=== PATIENT | female | born 1990 | race Caucasian/White ===

== ENCOUNTER 2018-08-23 14:52 | Inpatient (IN) | payer MEDICAID ==
--- NOTE | 2018-08-23 18:24 | ED PDOC ---
HPI: Psych/Substance Abuse Time Seen by Provider: 08/23/18 16:49 Chief Complaint (Nursing): Psychiatric Evaluation Chief Complaint (Provider): Psychiatric Evaluation History Per: Patient History/Exam Limitations: no limitations Current Symptoms Are (Timing): Still Present Suicide/Self Injury Attempted (Context): None Modifying Factor(s): None Associated Symptoms: Anxiety Additional Complaint(s): 28 year old female with a history ADHD, anxiety and depression presents to the ED for psychiatric evaluation. Patient reports her ADHD was originally treated with Ritalin without improvement. Following that, she was prescribed Adderrall, which improved symptoms, but was only able to take it for a month before she lost her insurance. Patient states that she was smoking weed in place of Adderall but has not done so in 3-4 weeks. Patient states she is feeling more anxious and irritable lately with decreased ability to concentrate. As per patient, she attempted to get an appointment through [facility] but was unable to obtain an appointment until late September so she was referred to the ED. Denies homicidal or suicidal ideation and both visual and auditory hallucinations. PMD: Dr. Fred Alan Past Medical History Reviewed: Historical Data, Nursing Documentation, Vital Signs Vital Signs: Last Vital Signs Temp 98 F 08/23/18 15:13 Pulse 109 H 08/23/18 15:13 Resp 16 08/23/18 15:13 BP 152/87 H 08/23/18 15:13 Pulse Ox 99 08/23/18 15:13 Primary Care Provider: Fred Alan - Medical History PMH: Anxiety, Depression Other PMH: ADHD - Surgical History Surgical History: No Surg Hx - Family History Family History: States: Unknown Family Hx - Social History Drugs: Denies - Allergies Allergies/Adverse Reactions: Allergies Allergy/AdvReac Type Severity Reaction Status Date / Time apple Allergy ITCHING Verified 08/23/18 22:27 cat dander Allergy ITCHING Verified 08/23/18 22:27 pollen extracts Allergy ITCHING Verified 08/23/18 22:27 Review of Systems ROS Statement: Except As Marked, All Systems Reviewed And Found Negative Psych: Positive for: Anxiety, Other (irritability and decreased concentration ). Negative for: Suicidal ideation (and HI) Physical Exam - Reviewed Nursing Documentation Reviewed: Yes Vital Signs Reviewed: Yes - Physical Exam Appears: Positive for: No Acute Distress Head Exam: Positive for: ATRAUMATIC, NORMAL INSPECTION, NORMOCEPHALIC Skin: Positive for: Normal Color, Warm, Dry Eye Exam: Positive for: EOMI, Normal appearance, PERRL ENT: Positive for: Normal ENT Inspection. Negative for: Other (tongue deviation) Cardiovascular/Chest: Positive for: Regular Rate, Rhythm. Negative for: Murmur Respiratory: Positive for: Normal Breath Sounds. Negative for: Respiratory Distress Neurological/Psych: Positive for: Awake, Alert, Normal Tone, Oriented (x 3), collar runner II-XII (intact), Other (Able to puff cheeks bilaterally; symmetrical eyebrow raise). Negative for: Facial Droop - Laboratory Results Result Diagrams: 08/23/18 19:30 08/23/18 19:30 - ECG ECG: Positive for: Interpreted By Me, Viewed By Me ECG Rhythm: Positive for: Sinus Rhythm (normal) Rate: 100 O2 Sat by Pulse Oximetry: 99 (RA) Pulse Ox Interpretation: Normal Medical Decision Making Medical Decision Makin:44 MDM: Crisis evaluation 19:10 Seen and evaluated by drapery worker. Patient will be admitted to Dr. Goode with the diagnosis of depression. Chest x-ray read by me and shows no acute pathology. UDS positive for benzos and cannabinoid, UA negative for nitrate and LE. Trace blood. WBCs within normal limits. Patient medically stable for psychiatric admission. Scribe Attestation: Documented by Kiley Dash, acting as a scribe Rachelle Villarreal Provider Scribe Attestation: All medical record entries made by the Scribe were at my direction and personally dictated by me. I have reviewed the chart and agree that the record accurately reflects my personal performance of the history, physical exam, medical decision making, and the department course for this patient. I have also personally directed, reviewed, and agree with the discharge instructions and disposition. Disposition - Clinical Impression Clinical Impression: Depression - Patient ED Disposition Is Patient to be Admitted: Yes Discussed With DrJustina: Arabella Goode Doctor Will See Patient In The: Hospital - Disposition Disposition: Transfer of Care Disposition Time: 19:10 Condition: FAIR - Pt Status Changed To: Hospital Disposition Of: Inpatient - Admit Certification Admit to Inpatient:: After my assessment, the patient will require hospitalization for at least two midnights. This is because of the severity of symptoms shown, intensity of services needed, and/or the medical risk in this patient being treated as an outpatient.
[2018-08-23 19:02] LABS: BARBITURATES, UR NEGATIVE (NEGATIVE); BENZODIAZEPINES, UR POSITIVE (NEGATIVE); OPIATES, UR NEGATIVE (NEGATIVE); PHENCYCLIDINE, UR NEGATIVE (NEGATIVE)
[2018-08-23 19:19] LABS: SQUAMOUS EPITHIAL 4 /hpf (0-5); URINE BACTERIA RARE (<OCC); URINE BILIRUBIN NEGATIVE (NEGATIVE); URINE CLARITY SLIGHTY-CLOUDY (Clear); URINE COLOR YELLOW (YELLOW); URINE GLUCOSE (UA) NEG (NEGATIVE); URINE LEUKOCYTE ESTERASE NEG Leu/uL (Negative); URINE PROTEIN NEGATIVE (NEGATIVE); URINE UROBILINOGEN 0.2-1.0 mg/dL (0.2-1.0)
[2018-08-23 19:20] LABS: URINE BLOOD TRACE (NEGATIVE)
[2018-08-23 19:49] LABS: BASO % 0.4 % (0.0-2.0); EOS # 0.1 K/uL (0.0-0.7); EOS % 1.2 % (0.0-4.0); HEMOGLOBIN 14.7 g/dL (12.0-16.0); LYMPH # 2.6 K/uL (1.0-4.3); LYMPH % 27.7 % (20.0-40.0); MEAN CELL VOLUME 94.3 fl (81.0-99.0); MEAN CORPUSCULAR HEMOGLOBIN 32.2 pg (27.0-31.0); MEAN CORPUSCULAR HGB CONC 34.2 g/dL (33.0-37.0); MEAN PLATELET VOLUME 7.4 fl (7.2-11.7); MONO # 0.5 K/uL (0.0-0.8); NEUT # 6.2 K/uL (1.8-7.0); NEUT % 65.7 % (50.0-75.0); NRBC % 0.1 % (0.0-0.0); RBC 4.55 Mil/uL (3.80-5.20); RED CELL DISTRIBUTION WIDTH 13.2 % (11.5-14.5); WHITE BLOOD COUNT 9.5 K/uL (4.8-10.8)
[2018-08-23 19:54] LABS: ALB/GLOB RATIO 1.5 (1.0-2.1); ALBUMIN 4.9 g/dL (3.5-5.0); ALT/SGPT 24 U/L (9-52); AST/SGOT 31 U/L (14-36); BLOOD UREA NITROGEN 6 mg/dl (7-17); CALCIUM 9.7 mg/dL (8.4-10.2); GFR NON-AFRICAN AMERICAN > 60
[2018-08-23] MEDS ORDERED: Magnesium Hydroxide Susp 30 ml UD PO PRN (23:01)
[2018-08-23] MEDS ORDERED: Alum-Mag Hydrox-Simethicone Susp (30 mL) PO PRN (23:01)
[2018-08-23] MEDS ORDERED: DiphenhydrAMINE 50 mg/ml Inj IM PRN (23:01)
--- NOTE | 2018-08-23 23:15 | PCM.BM ---
<Otf Beckett - Last Filed: 08/23/18 23:13> Treatment Plan Problems - Problems identified on initial assessmt Anxiety Date Initiated: 08/23/18 Time Initiated: 23:13 Assessment reference: NA Status: Active Priority: 1 Hopelessness/Helplessness Date Initiated: 08/23/18 Time Initiated: 23:13 Assessment reference: NA Status: Active Priority: 2 Altered Sleep Patterns Date Initiated: 08/23/18 Time Initiated: 23:14 Assessment reference: NA Status: Active Priority: 3 Medication nonadherence Date Initiated: 08/23/18 Time Initiated: 23:14 Assessment reference: NA Status: Active Priority: 4 Treatment assets and liabiliti Patient Assests: cooperative, educated, self-reliant, ADL independent, physically healthy, good support system, negotiates basic needs, cognitively intact, good interpersonal skills Patient Liabilities: substance abuse, other (Medication noncompliance) - Milieu Protocol Maintain good personal hygiene: daily Encourage regular showers, daily Remind patient to perform daily oral care, daily Assist patient to perform ADL's Conduct patient checks and document Observation sheet: Q15 minutes Maintain personal safety: every shift Educate patient to report safety concerns to staff, every shift Monitor environment for contraband/sharps Medication safety: Monitor for expected outcome, potential side effects: every shift, Assess barriers to learning: every shift, Assess readiness for medication education: every shift <Arabella Goode - Last Filed: 08/24/18 09:39> - Diagnosis (1) Major depressive disorder Status: Acute Interventions: Medication management, Individual and group therapy, Psychoeducation 08/24/18 09:39 (2) Generalized anxiety disorder Status: Acute Interventions: Medication management, Individual and group therapy, Psychoeducation 08/24/18 09:39 (3) ADHD Status: Acute Interventions: Medication management, Individual and group therapy, Psychoeducation 08/24/18 09:39 <Carole Muñoz - Last Filed: 08/24/18 14:07> Family Contact Family involvement: Patient does not wish Family/SO involvement Family contact: Patient declines to allow family contact at present - Outside Agency [facility] Care involvment: Information-sharing Agency contact number: - Goals for Treatment Patient goals for treatment: Pt will improve overall mood. Pt will comply with treatment plan and prescribed medications. Pt will attend activity and group therapy. Pt will develop coping skills to cope with her anxiety and depression. Pt will develop strategies for thought distraction when ruminating on the past. Discharge/Continuing Care - Education Needs Education Needs: Patient Medication, Patient Diagnosis/Disease Process, Patient Coping Skills, Patient Community resources, Patient Activities of Daily Living, Patient Aftercare Safety Plan - Discharge Discharge Criteria: Tolerates medication w/o severe side effects, Normal sleep pattern, Ability to care for self, Reduction of target symptoms, Other Discharge to:: Home, With Family - Additional Comments 08/24/18 13:56 Pt seen and discussed in team meeting. Reason for hospitalization reviewed and discussed. Pt reported that she was referred to the ED by Dr. Dayanna MD. Pt reported it was her first time seeing Dr. Alan and she explained to him that she has a hx of depression, anxiety and ADHD. Pt reported that she was under the care and tx of a psychiatrist during her childhood, but not recently. Pt reported that she did seek treatment with [facility] and also has an appointment scheduled for [facility] on 09/23/2018. Pt reported that [facility] provided her with RX for depression and anxiety for 15 days. Pt reported issues with her ADHD medication due to health insurance issues. Pt reported depressed mood, increased anxiety and mood swings prior to hospitalization. Pt reported feeling stable presently. Pt's medications reviewed by attending psychiatrist. Pt reported having no concerns of side affects. Pt's social and medical issues reviewed. Pt reported that her 2 y.o. daughter is presently under the care of her father, Alfred and her godmother and her brother. Pt denied SI and HI. Pt denied AVH. Pt denied any paranoia. Pt denied hx of prior suicide attempts. Pt denied thoughts to hurt herself or others. Pt denied hx of DCP&P. Pt signed a 48 hour notice of intent to leave and per attending psychiatrist pt will be discharged tomorrow, August 25. Pt verbalized agreement. Nursing Home Admissions Director offered pt to be linked to [facility] due to proximally and pt agreeable. Pt signed consent for for [facility] and requested that feature writer cancel her appointment with [facility]. Nursing Home Admissions Director inquired about family contact for collateral information. Pt declined stating that she already spoke to her family and they are aware of her hospitalization. Pt stated "the are [place] and make a small problem into a big problem." SW will continue to follow case. - Treatment Team Participation Discussed with Family/SO: No (Pt refused) Was Patient/Family/SO present at Treatment Team Meeting: Yes
[2018-08-23 23:43] VITALS: O2SAT 99
--- NOTE | 2018-08-24 06:37 | CP.PCM.CON ---
History of Present Illness - History of Present Illness History of Present Illness: Medicine consult note for Dr. Alan, This is 28 y/o F with PMH of ADHD, depression and anxiety admitted to [facility]/Psych for evaluation and treatment of Anxiety. Patient reports she is not on her adderall for ADHD for insurance issues and that is making her anxious. Denies any current SI/HI. Denies any health issue, dizziness, hallucination, palpitations, chest pain, SOB, abdominal pain or dysuria. PMD: Dr. Alan PMH: ADHD, depression and anxiety PSh; Allg: NKDA SH: + marijuana, + 3-5 cig/day and denies any alcohol use FH: + Heart disease and depression ROS: As per HPI Review of Systems - Constitutional Constitutional: absent: Excessive Sweating, Lethargy, Weight Loss, Weakness - EENT Eyes: absent: Blurred Vision Ears: absent: Ear Discharge, Dizziness Nose/Mouth/Throat: absent: Nasal Congestion - Breasts Breasts: absent: Skin Changes - Cardiovascular Cardiovascular: absent: Chest Pain - Respiratory Respiratory: absent: Cough, Dyspnea, Hemoptysis, Dyspnea on Exertion - Gastrointestinal Gastrointestinal: absent: Abdominal Pain, Diarrhea, Vomiting - Genitourinary Genitourinary: absent: Change in Urinary Stream, Dysuria - Musculoskeletal Musculoskeletal: absent: Back Pain - Integumentary Integumentary: absent: Skin Ulcer - Neurological Neurological: absent: Abnormal Hearing, Dizziness, Sensory Deficit, Syncope, Tingling, Tremor, Vertigo, Weakness, Other Visual Disturbances - Psychiatric Psychiatric: Anxiety, Depression. absent: Suicidal Ideation, Visual Hallucinations, Tactile Hallucinations - Endocrine Endocrine: absent: Polyuria - Hematologic/Lymphatic Hematologic: absent: Easy Bleeding Past Patient History - Past Social History Drugs: Denies - CARDIAC Hx Cardiac Disorders: No Hx Hypertension: No - PULMONARY Hx Tuberculosis: No - NEUROLOGICAL HX Cerebrovascular Accident: No Hx Seizures: No - HEMATOLOGICAL/ONCOLOGICAL Hx Cancer: No Hx Human Immunodeficiency Virus (HIV): No - GENITOURINARY/GYNECOLOGICAL Hx Sexually Transmitted Disorders: No - PSYCHIATRIC Hx Anxiety: Yes Hx Depression: Yes - SURGICAL HISTORY Hx Section: Yes (2016) - ANESTHESIA Hx Anesthesia: Yes Hx Anesthesia Reactions: No Meds Home Medications: Home Medication List Medication Instructions Recorded Confirmed Type Amphetamine Salt Combination 5 mg PO DAILY #30 tab 08/24/18 Rx [Adderall] Clotrimazole 1% Cream [Lotrimin 1% 1 applic TOP BID #1 tube 08/24/18 Rx CREAM] buPROPion SR [Wellbutrin SR 150 MG] 150 mg PO DAILY #30 tab 08/24/18 Rx hydrOXYzine Pamoate [Vistaril] 50 mg PO HS PRN #30 cap 08/24/18 Rx Allergies/Adverse Reactions: Allergies Allergy/AdvReac Type Severity Reaction Status Date / Time apple Allergy ITCHING Verified 08/23/18 22:27 cat dander Allergy ITCHING Verified 08/23/18 22:27 pollen extracts Allergy ITCHING Verified 08/23/18 22:27 - Medications Medications: Current Medications Acetaminophen (Tylenol 325mg Tab) 650 mg PO Q4 PRN PRN Reason: Pain (4-7) Al Hydrox/Mg Hydrox/Simethicone (Maalox Plus 30 Ml) 30 ml PO Q4 PRN PRN Reason: Dyspepsia Diphenhydramine HCl (Benadryl) 50 mg IM Q6 PRN PRN Reason: Extrapyramidal S/S Unable PO Diphenhydramine HCl (Benadryl) 50 mg PO Q6 PRN PRN Reason: Extrapyramidal Symptoms Haloperidol (Haldol) 5 mg PO Q4 PRN PRN Reason: Agitation Haloperidol Lactate (Haldol) 5 mg IM Q4 PRN PRN Reason: Agitation, Unable to Take PO Lorazepam (Ativan) 2 mg IM Q6 PRN PRN Reason: Anxiety/Agitation,Unable PO Lorazepam (Ativan) 1 mg PO Q8 PRN PRN Reason: Anxiety/Agitation Magnesium Hydroxide (Milk Of Magnesia) 30 ml PO HS PRN PRN Reason: Constipation Physical Exam - Constitutional Appears: Well, No Acute Distress - Head Exam Head Exam: ATRAUMATIC, NORMAL INSPECTION, NORMOCEPHALIC - Eye Exam Eye Exam: EOMI, Normal appearance, PERRL Pupil Exam: NORMAL ACCOMODATION - ENT Exam ENT Exam: Mucous Membranes Moist - Neck Exam Neck exam: Positive for: Normal Inspection - Respiratory Exam Respiratory Exam: Clear to Auscultation Bilateral, NORMAL BREATHING PATTERN. absent: Rhonchi, Wheezes, Respiratory Distress - Cardiovascular Exam Cardiovascular Exam: REGULAR RHYTHM, +S1, +S2 - GI/Abdominal Exam GI & Abdominal Exam: Normal Bowel Sounds, Soft. absent: Tenderness - Extremities Exam Extremities exam: Positive for: normal inspection - Back Exam Back exam: NORMAL INSPECTION. absent: CVA tenderness (L), CVA tenderness (R) - Neurological Exam Neurological exam: Alert, CN II-XII Intact, Normal Gait, Oriented x3, Reflexes Normal - Psychiatric Exam Psychiatric exam: Normal Affect - Skin Skin Exam: Rash ( annular (O-shaped) patches on forhead extending to scalp ) Results - Vital Signs Recent Vital Signs: Last Vital Signs Temp 97.6 F 08/24/18 06:00 Pulse 87 08/24/18 06:00 Resp 20 08/24/18 06:00 BP 103/62 08/24/18 06:00 Pulse Ox 99 08/23/18 23:43 - Labs Result Diagrams: 08/23/18 19:30 08/23/18 19:30 Labs: Laboratory Results - last 24 hr 08/23/18 08/23/18 08/23/18 18:25 18:30 19:30 WBC 9.5 RBC 4.55 Hgb 14.7 Hct 42.9 MCV 94.3 MCH 32.2 H MCHC 34.2 RDW 13.2 Plt Count 301 MPV 7.4 Neut % (Auto) 65.7 Lymph % (Auto) 27.7 [place] % (Auto) 5.0 Eos % (Auto) 1.2 Baso % (Auto) 0.4 Neut # (Auto) 6.2 Lymph # (Auto) 2.6 [place] # (Auto) 0.5 Eos # (Auto) 0.1 Baso # (Auto) 0.0 Sodium Potassium Chloride Carbon Dioxide Anion Gap BUN Creatinine Est GFR ( Amer) Est GFR (Non-Af Amer) Random Glucose Calcium Total Bilirubin AST ALT Alkaline Phosphatase Total Protein Albumin Globulin Albumin/Globulin Ratio Triglycerides Cholesterol HDL Cholesterol Urine Color Yellow Urine Clarity Slighty-cloudy Urine pH 6.0 Ur Specific [place] 1.006 Urine Protein Negative Urine Glucose (UA) Neg Urine Ketones Negative Urine Blood Trace Urine Nitrate Negative Urine Bilirubin Negative Urine Urobilinogen 0.2-1.0 Ur Leukocyte Esterase Neg Urine RBC (Auto) 3 Urine Microscopic WBC 2 Ur Squamous Epith Cells 4 Urine Bacteria Rare Urine Opiates Screen Negative Urine Methadone Screen Negative Ur Barbiturates Screen Negative Ur Phencyclidine Scrn Negative Ur Amphetamines Screen Negative U Benzodiazepines Scrn Positive U Oth Cocaine Metabols Negative U Cannabinoids Screen Positive H 08/23/18 08/24/18 19:30 06:15 WBC RBC Hgb Hct MCV MCH MCHC RDW Plt Count MPV Neut % (Auto) Lymph % (Auto) [place] % (Auto) Eos % (Auto) Baso % (Auto) Neut # (Auto) Lymph # (Auto) [place] # (Auto) Eos # (Auto) Baso # (Auto) Sodium 138 Potassium 4.3 Chloride 101 Carbon Dioxide 25 Anion Gap 16 BUN 6 L Creatinine 0.6 L Est GFR ( Amer) > 60 Est GFR (Non-Af Amer) > 60 Random Glucose 139 H Calcium 9.7 Total Bilirubin 0.6 AST 31 ALT 24 Alkaline Phosphatase 60 Total Protein 8.2 Albumin 4.9 Globulin 3.3 Albumin/Globulin Ratio 1.5 Triglycerides 92 Cholesterol 199 HDL Cholesterol 48 Urine Color Urine Clarity Urine pH Ur Specific [place] Urine Protein Urine Glucose (UA) Urine Ketones Urine Blood Urine Nitrate Urine Bilirubin Urine Urobilinogen Ur Leukocyte Esterase Urine RBC (Auto) Urine Microscopic WBC Ur Squamous Epith Cells Urine Bacteria Urine Opiates Screen Urine Methadone Screen Ur Barbiturates Screen Ur Phencyclidine Scrn Ur Amphetamines Screen U Benzodiazepines Scrn U Oth Cocaine Metabols U Cannabinoids Screen Assessment & Plan - Assessment and Plan (Free Text) Assessment: A/P: 28 y/o F with PMH of ADHD, depression and anxiety admitted to [facility]/Psych for evaluation and treatment of Anxiety. VA and labs reviewed. Tinea infection on forehead - Clotrimazole cream BID Smoking addiction - Nicotine patches ADHD, depression and anxiety - Continue management as per psych team Marijuana use disorder - Educated and advised to avoid illicit substances DVT PPX - Ambulatory Case discussed and patient seen with Dr. Alan
--- NOTE | 2018-08-24 08:47 | RAD ---
Date of service: 08/23/2018 HISTORY: shortness of breath, cough COMPARISON: No prior. TECHNIQUE: Chest PA and lateral views FINDINGS: LUNGS: No active pulmonary disease. PLEURA: No significant pleural effusion identified. No pneumothorax apparent. CARDIOVASCULAR: No aortic atherosclerotic calcification present. Normal cardiac size. No pulmonary vascular congestion. OSSEOUS STRUCTURES: No significant abnormalities. VISUALIZED UPPER ABDOMEN: Normal. OTHER FINDINGS: None. IMPRESSION: No active disease.
--- NOTE | 2018-08-24 08:59 | PCM.PSYCH ---
Initial Psychiatric Evaluation - Initial Psychiatric Evaluation Type of Admission: Voluntary Legal Status: Capacity Chief Complaint (in patient's own words): Depression/anxiety Patient's Reaction to Hospitalization: HPI: 28 yo female w/ h/o recently diagnosed depression, chronic anxiety, ADHD, presents w/ depressed mood, anxiety, irritability, intermittent episodes of crying, poor concentration and difficulty completing tasks due to lack of medication for ADHD due to insurance issues. She denies acute AH/VH/SI/HI/paranoia. She is requesting to be discharged tomorrow because she has a small child she needs to care for (currently safely under the care of her family). She is agreeable to treatment with psychiatric medications at his time. PPHx: No history of psychiatric admission; h/o outpatient treatment for ADHD and depression; no h/o suicide attempts; H/o treatment with Wellbutrin SR 150 mg PO Daily; Adderrall and Ritalin (not currently); and Vistaril 50 mg PO PRN anxiety PMHx: Asthma ALL: NKDA SHx: Lives w/ family; has 1 daughter; smokes 3 cig per day (declined smoking cessation); +intermittent Marijuana use; denies alcohol use; unemployed, used to work as a laborer vegetable farm Current Medications: Active Medications Generic Name Dose Route Start Last Admin Trade Name Freq PRN Reason Stop Dose Admin Acetaminophen 650 mg 08/23/18 23:01 Tylenol 325mg Tab PO Q4 PRN Pain (4-7) Al Hydrox/Mg Hydrox/Simethicone 30 ml 08/23/18 23:01 Maalox Plus 30 Ml PO Q4 PRN Dyspepsia Clotrimazole 1 applic 08/24/18 09:00 Lotrimin 1% Cream TOP BID CHECO Diphenhydramine HCl 50 mg 08/23/18 23:01 Benadryl IM Q6 PRN Extrapyramidal S/S Unable PO Diphenhydramine HCl 50 mg 08/23/18 23:01 Benadryl PO Q6 PRN Extrapyramidal Symptoms Haloperidol 5 mg 08/23/18 23:01 Haldol PO Q4 PRN Agitation Haloperidol Lactate 5 mg 08/23/18 23:01 Haldol IM Q4 PRN Agitation, Unable to Take PO Lorazepam 2 mg 08/23/18 23:01 Ativan IM Q6 PRN Anxiety/Agitation,Unable PO Lorazepam 1 mg 08/23/18 23:01 Ativan PO Q8 PRN Anxiety/Agitation Magnesium Hydroxide 30 ml 08/23/18 23:01 Milk Of Magnesia PO HS PRN Constipation Past Psychiatric History - Past Psychiatric History Pertinent Medical Hx (Current Medical&Sleep Prob, Allergies): Allergies Allergy/AdvReac Type Severity Reaction Status Date / Time apple Allergy ITCHING Verified 08/23/18 22:27 cat dander Allergy ITCHING Verified 08/23/18 22:27 pollen extracts Allergy ITCHING Verified 08/23/18 22:27 Review of Systems - Psychiatric Psychiatric: As Per HPI, Abnormal Sleep Pattern, Anxiety, Depression, Difficulty Concentrating, Irritability Mental Status Examination - Personal Presentation Personal Presentation: Looks stated age - Affect Affect: Constricted - Motor Activity Motor Activity: Calm - Reliability in Providing Information Reliability in Providing Information: Good - Speech Speech: Organized, Coherent - Mood Mood: Depressed, Anxious - Formal Thought Process Formal Thought Process: No Impairment - Hallucinations/Delusions Additional comments: No AH/VH/paranoia/delusions - Obsessions/Compulsions Obsessions: No Compulsions: No - Cognitive Functions Orientation: Person, Place, Situation, Time Sensorium: Alert Attention/Concentration: Attentive Estimate of Intelligence: Average Judgement: Intact, as evidence by: Good judgement, Intact, as evidence by: Insight regarding need for hospitalization Memory: Recent intact, as evidence by: Ability to recall events of the day, Remote intact, as evidenced by: Abilit to recall sig. life events, Remote intact, as evidenced by: Ability to recall historical events - Risk Risk: Diminished functioning - Strength & Assets Inventory Strength & Assets Inventory: Cooperative DSM 5 DX - DSM 5 DSM 5 Diagnosis: Major Depressive Disorder; Generalized Anxiety Disorder; ADHD - Recommended/Plan of Treatment Treatment Recommendations and Plan of Treatment: Major Depressive Disorder; Generalized Anxiety Disorder; ADHD -Admit to psychiatry unit -Restart Wellbutrin SR 150 mg PO Daily -Restart Adderall 5 mg PO Daily -Vistaril 50 mg PO PRN anxiety -Psychoeducation provided on the dangers of marijuana use -Individual and group therapy -Medicine consult -Disposition- patient submitted a 48 hr letter; she will be observed for clinical safety overnight with possible discharge tomorrow - Smoking Cessation Smoking Cessation Initiated: No Reason for not providing: Patient declined
[2018-08-24] MEDS: buPROPion SR 150 MG TABLET PO SCH (10:59)
[2018-08-24] MEDS: AMPHETAMINE SALT COMBINATION 5 MG TAB PO SCH (11:02)
--- NOTE | 2018-08-24 11:51 | CARD ---
APPROVED REPORT Date of service: 08/23/2018 EKG Measurement Heart [id number] <Conclusion> Normal sinus rhythm Normal ECG
[2018-08-25 06:28] VITALS: BP 139/62; PULSE 91; RESP 18; TEMP 97.1
--- NOTE | 2018-08-25 08:11 | PCM.PYCHDC ---
Mental Status Examination - Mental Status Examination Orientation: Person, Place, Situation, Time Memory: Intact Mood: Neutral Affect: Broad Speech: Appropriate Attention: WNL Concentration: WNL Association: WNL Fund of Knowledge: WNL Formal Thought Process: No Impairment Description of patient's judgement and insight: Fair I/J Psychotic Thoughts and Behaviors: No AH/VH/paranoia/delusions Suicidal Ideation: No Current Homicidal Ideation?: No Discharge Summary - Discharge Note Reason for Hospitalization: HPI: 28 yo female w/ h/o recently diagnosed depression, chronic anxiety, ADHD, presents w/ depressed mood, anxiety, irritability, intermittent episodes of crying, poor concentration and difficulty completing tasks due to lack of medication for ADHD due to insurance issues. She denies acute AH/VH/SI/HI/paranoia. She is requesting to be discharged tomorrow because she has a small child she needs to care for (currently safely under the care of her family). She is agreeable to treatment with psychiatric medications at his time. PPHx: No history of psychiatric admission; h/o outpatient treatment for ADHD and depression; no h/o suicide attempts; H/o treatment with Wellbutrin SR 150 mg PO Daily; Adderrall and Ritalin (not currently); and Vistaril 50 mg PO PRN anxiety PMHx: Asthma ALL: NKDA SHx: Lives w/ family; has 1 daughter; smokes 3 cig per day (declined smoking cessation); +intermittent Marijuana use; denies alcohol use; unemployed, used to work as a early learning teacher Laboratory Data: Abnormal Lab Results 08/24/18 08/24/18 06:15 06:15 Hemoglobin A1c 5.4 RPR Nonreactive Consultations:: List each consultation separately and include: 1. Reason for request. 2. Findings. 3. Follow-up Consultations: Medicine consult Summary of Hospital Course include:: 1. Description of specific treatment plan utilized for patients during their course of treatmen. 2. Summarize the time- course for resolution of acute symptoms and/or regressed behaviors. 3. Describe issues identified and worked on during hospitalization. 4. Describe medication utilized. 5. Describe medical problems identified and treated. 6. Reassessment of suicide risk Summary of Hospital Course: Patient was admitted to the hospital. Individual and group therapy were provided. Patient treated w/ Adderall 5 mg PO Daily, Wellbutrin SR 150 mg PO Daily, and Vistaril 50 mg PO PRN anxiety. She submitted a 48 hr letter and does not meet criteria for involuntary psychiatric commitment at this time. She denies acute depression/AH/VH/SI/HI. Psychoeducation provided on the importance of compliance with treatment and medications. - Diagnosis (1) Major depressive disorder Current Visit: Yes Status: Acute (2) Generalized anxiety disorder Current Visit: Yes Status: Acute (3) ADHD Current Visit: Yes Status: Acute - Final Diagnosis (DSM 5) Condition upon Discharge: FAIR DSM 5: Major Depressive Disorder; Generalized Anxiety Disorder; ADHD Disposition: HOME/ ROUTINE Follow-up Treatment Plan: Major Depressive Disorder; Generalized Anxiety Disorder; ADHD -Wellbutrin SR 150 mg PO Daily -Adderall 5 mg PO Daily -Vistaril 50 mg PO PRN anxiety -Discharge with outpatient follow-up Prescriptions/Medication Reconciliation: RX: Amphetamine Salt Combination [Adderall] 5 mg PO DAILY #30 tab RX: buPROPion SR [Wellbutrin SR 150 MG] 150 mg PO DAILY #30 tab RX: Clotrimazole 1% Cream [Lotrimin 1% CREAM] 1 applic TOP BID #1 tube RX: hydrOXYzine Pamoate [Vistaril] 50 mg PO HS PRN #30 cap PRN Reason: Anxiety - Smoking Cessation Smoking Cessation Medication prescribed: No Reason for not providing: Patient declined - Antipsychotic Medications Pt discharged on 2 or more routine antipsychotic medications: No
[2018-08-25] MEDS: AMPHETAMINE SALT COMBINATION 5 MG TAB PO SCH (08:21)
[2018-08-25] MEDS: buPROPion SR 150 MG TABLET PO SCH (08:24)
== END 2018-08-25 09:35 | disposition home or self-care (01) | DRG 754 ==
LOC: H.ER 14:52 → H.ERHOLD 19:10 → H.STEP 22:54
PROVIDERS: ADMIT Psychiatry & Neurology Psychiatry; ATTEND Psychiatry & Neurology Psychiatry
PROC: GZHZZZZ Group Psychotherapy (ICD-10-PCS; principal; 2018-08-23)
PROC: GZ58ZZZ Individual Psychotherapy, Cognitive-Behavioral (ICD-10-PCS; 2018-08-23)
DX: F32.9 Major depressive disorder, single episode, unspecified (principal); B35.9 Dermatophytosis, unspecified; F41.1 Generalized anxiety disorder; F12.90 Cannabis use, unspecified, uncomplicated; F90.9 Attention-deficit hyperactivity disorder, unspecified type; F17.210 Nicotine dependence, cigarettes, uncomplicated; J45.909 Unspecified asthma, uncomplicated; Z79.899 Other long term (current) drug therapy